=== PATIENT | female | born 1965 | race Caucasian/White ===

== ENCOUNTER → 2021-03-27 13:01 | Outpatient (CLI) | payer OTHER, MEDICAID, SELFPAY ==
--- NOTE | 2021-03-27 | DI.US.S_ITS ---
PROCEDURE: US RENAL COMPLETE INDICATIONS: GROSS HEMATURIA/KIDNEY DISEASE STAGE 3 TECHNIQUE: Real-time scanning was performed of the kidneys and bladder, with image documentation. COMPARISON: None. FINDINGS: Kidneys: Right kidney measures 23.7 cm long; left kidney measures 27.4 cm long. Right renal cortical thickness is 0.6 cm; left renal cortical thickness is 1.8 cm. Multi-cystic change of the bilateral kidneys. The largest right cyst measures 8.7 x 7.3 x 5.2 cm and is located within the upper pole. No solid component is appreciated. The largest left cyst measures 6.8 x 5.7 x 4.8 cm and is located within the upper pole. Dependent echogenic material is seen within the aforementioned cyst, measuring 4.5 x 4 cm, which does not exhibit vascularity and may reflect blood products or reflect a soft tissue component. No gross hydronephrosis or nephrolithiasis. Bladder: Pre-void bladder volume is 430 mL. Post-void residual is 15 mL. Pre-void images demonstrate no intraluminal masses or stones. On pre-void images, the left ureteral jet is seen with color Doppler interrogation. (Of note, ureteral jets may not be detectable in up to 25% of cases due to insufficient differences in specific gravity between ureteral and bladder urine). Miscellaneous: No free pelvic fluid. Lobulated contour of the uterus with a hypoechoic, ovoid mass, measuring up to 7.8 cm, which may reflect a fibroid. Hypoechoic lesions are seen in the liver measuring up to 10.5 cm, likely representing cysts. IMPRESSION: 1. Multi cystic change of the kidneys and liver. 2. Blood products versus solid component within the left upper pole cyst. Magnetic resonance imaging with renal protocol may be helpful for further characterization. Dictated by: Chivo Le M.D. on 03/27/2021 at 15:25 Approved by: Chivo Le M.D. on 03/27/2021 at 15:31
== END ==
PROVIDERS: PCP Nurse Practitioner Family; Referring Provider Family Medicine; Visit Provider Family Medicine
DX: N18.32 Chronic kidney disease, stage 3b (principal); R31.0 Gross hematuria; Q61.3 Polycystic kidney, unspecified
CPT/HCPCS: 76770

== ENCOUNTER → 2021-08-04 12:42 | Outpatient (CLI) | payer OTHER, MEDICAID, SELFPAY ==
--- NOTE | 2021-08-04 | DI.MRI.S_ITS ---
PROCEDURE: MR ABDOMEN WO CON INDICATIONS: Polycystic kidney/Hematuria/kidney mass TECHNIQUE: Multiplanar multisequence noncontrast exam of the abdomen. Coronal and axial HASTE, axial 2-D FLASH in- and [id number]. Coronal VIBE and T2 space images also obtained. COMPARISON: [facility], , US RENAL COMPLETE, 03/27/2021, 13:31. FINDINGS: Image quality: Adequate. Kidneys: Polycystic morphology of the kidneys. Due to large size, the right kidney is not entirely included within the [id number] of the exam. Renal volumes were not calculated due to incomplete visualization of the right kidney and absence of images in the sagittal plane. A nodular structure is present along the anterior/anti dependent aspect of a cyst at the upper left kidney. This measures 1.6 x 1.7 x 3.2 cm (axial T2 haste series 6, image 27 and coronal T2 haste series 3, image 20). This finding demonstrates intrinsic T1 hyperintensity on T1 weighted images. No intravenous contrast was administered to assess for presence or absence of enhancement. This may correlate with the finding described in the report of the recent renal ultrasound however comparison is difficult due to differences in modality. Within the same cyst, along the dependent portion, there is layering material demonstrating intrinsic T1 hyperintensity compatible with blood products or clot or proteinaceous material. Similar findings are present in multiple additional cysts in both kidneys. No definite hydronephrosis. Adrenal glands: Not well visualized. Other solid organs: Polycystic morphology of the liver. Gallbladder is difficult to identify given the presence of innumerable hepatic and renal cysts. Biliary system is non dilated. Pancreas is unremarkable in morphology. Spleen is normal in size. Nodes and vessels: No definite retroperitoneal or mesenteric adenopathy by size criteria. Aorta and inferior vena cava are normal in size. Bowel and peritoneum: Unenhanced bowel loops are normal in caliber. Colonic diverticulosis is present. No substantial free fluid. Lung bases: No basal pleural effusions. Bones and soft tissues: Bone marrow is of normal overall signal. Leftward curvature of the lumbar spine centered at the mid lumbar spine. IMPRESSION: 1. Polycystic morphology of the kidneys and liver. 2. A 3.2 cm indeterminate nodular structure is present within a cortical cyst at the left upper kidney. This may correspond to the finding described on the report for the recent renal ultrasound. The non-contrast signal characteristics raise the possibility of blood products/clot however an enhancing solid mass cannot be excluded in the absence of intravenous contrast. Consider imaging follow-up to ensure stability or resolution, with an initial interval of 3-6 months or at clinical discretion. Dictated by: Gabe Goode M.D. on 08/04/2021 at 17:53 Approved by: Gabe Goode M.D. on 08/04/2021 at 18:17
== END ==
PROVIDERS: PCP Nurse Practitioner Family; Referring Provider Nurse Practitioner Family; Visit Provider Nurse Practitioner Family
DX: Q61.3 Polycystic kidney, unspecified (principal); R31.9 Hematuria, unspecified; N28.89 Other specified disorders of kidney and ureter
CPT/HCPCS: 74181

== ENCOUNTER 2023-04-27 17:53 | Emergency (ER) | payer OTHER, MEDICAID, SELFPAY ==
[2023-04-27 18:12] VITALS: BP 181/97; PULSE 89; RESP 18; TEMP 36.8; O2SAT 98; BMI 23.3
--- NOTE | 2023-04-27 18:21 | DI.RAD.S_ITS ---
PROCEDURE: XR CHEST 1V INDICATIONS: chest pain TECHNIQUE: One view of the chest was acquired. COMPARISON: None. FINDINGS: Surgical changes and devices: None. Lungs and pleura: Lungs are clear. No pleural effusions or pneumothorax. Mediastinum: Mediastinal contours appear normal. Heart size is normal. Bones and chest wall: No suspicious bony lesions. Overlying soft tissues appear unremarkable. IMPRESSION: No acute cardiopulmonary abnormalities or focal airspace disease. Dictated by: Prabhu Hoffmann M.D. on 04/27/2023 at 18:17 Approved by: Prabhu Hoffmann M.D. on 04/27/2023 at 18:18
[2023-04-27 18:57] LABS: Add Manual Diff / Slide Review NO; Basophils Absolute Auto 100 /uL (0-100); Basophils Percent Auto 0.6 % (0-2); Eosinophils Absolute Auto 100 /uL (0-450); Hematocrit 39.8 % (36-46); Hemoglobin 13.3 g/dL (12.0-16.0); Lymphocytes Absolute Auto 1200 /uL (1100-4500); Mean Corpuscular HGB Conc 33.6 % (30-36); Mean Corpuscular Volume 89.3 fL (80-100); Monocytes Absolute Auto 400 /uL (0-900); Monocytes Percent Auto 4.5 % (3-14); Neutrophils Absolute Auto 7500 /uL (1500-7000); Neutrophils Percent Auto 80.9 % (50-75); Platelet Count 210 X10^3/uL (150-400); Red Blood Cell Count 4.45 X10^6/uL (4.0-5.2); Red Cell Distribution Width 13.6 % (11.6-14.8); White Blood Cell Count 9.3 X10^3/uL (4.5-11.0)
[2023-04-27 19:04] LABS: Prothrombin Time 11.8 SECONDS (9.4-12.5)
[2023-04-27 19:07] LABS: PTT Partial Thromboplastin Tim 45 SECONDS (25.1-36.5)
[2023-04-27 19:09] LABS: Alanine Aminotransferase 18 IU/L (<35); Albumin 4.4 g/dL (3.5-5.0); Albumin Globulin Ratio 1.3 (1.0-2.8); Alkaline Phosphatase 78 U/L (38-126); Aspartate Aminotransferase 21 IU/L (14-36); BUN Creatinine Ratio 8.4 (6-22); Bilirubin Total 0.6 mg/dL (0.2-1.3); Blood Urea Nitrogen 16 mg/dL (7-17); Calcium 9.3 mg/dL (8.4-10.2); Carbon Dioxide 27 mmol/L (22-32); Chloride 104 mmol/L (98-107); Creatine Kinase 52 U/L (30-135); Estimated Glomerular Filt Rate 30 mL/min (>60); Globulin 3.5 g/dL (1.7-4.1); Glucose 106 mg/dL (70-100); HEMOLYSIS < 15 (0-50); Lipase 201 U/L (23-300); Potassium 3.6 mmol/L (3.4-5.1); Sodium 138 mmol/L (137-145); Total Protein 7.9 g/dL (6.3-8.2)
[2023-04-27 19:20] LABS: Troponin I < 0.012 ng/mL (0.01-0.034)
--- NOTE | 2023-04-27 20:10 | PC.NURSE ---
pt states she is currently being seen by a urologist down at [facility]. He has ordered a test for histoplamosis and a MRI. she has not been able to schedule this so far. she has kidney failure that is worsening. the last few weeks she has felt weak going up stairs, walking, she feels tremors under her skin. states she has lost 20lb in 2 weeks. increased number of falls, headaches, decreased appetite, digestive changes, joint pain. she states she has a lump on her arm that is painful to the touch from where she got her covid shot 3 weeks ago. 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 she only feels better when she has all the windows down. she understands she will not get all the answers tonight but is hoping we can start her journey to discover what is going on. pt also informed that she will probably not be able to make [place] last ferry tonight and expect to stay in town. she verbalized understanding of this and is okay with plan.
--- NOTE | 2023-04-27 21:31 | ED.WEAKNESS ---
HPI - Weakness General Chief complaint: Weakness Stated complaint: kidney failure/shaking/headaches/ T-0 Time Seen by Provider: 04/27/23 21:31 Source: patient Mode of arrival: Ambulatory History of Present Illness HPI Narrative: Patient 57-year-old female history of polycystic kidney disease followed by nephrology in lives over at [place] presents today with variety of symptoms. He reports that he has had 20 lb weight loss over the last 2 weeks despite eating and drinking normally. She feels shaky and weak. Denies any fever chills. This morning she felt like she was trembling more than normal. She was seen by her pick up and delivery driver this week who ordered an MRI and a histoplasmosis test. She is having difficulty trying to coordinate get these tests done despite talking to the pick up and delivery driver's office in scheduling. Apparently the order was sent to a different facility is causing her great anxiety. She has no chest pain or shortness of breath. Related Data Allergies Allergy/AdvReac Type Severity Reaction Status Date / Time Opioids - Morphine Analogues AdvReac psychotically Verified 04/27/23 18:11 angry tomato AdvReac mouth Verified 04/27/23 18:11 blisters Patient History Social History Smoking Status: Never smoker Smoking Status: Never smoker Substance Use Type: does not use Exam Initial Vital Signs Initial Vital Signs: Vital Signs Temperature 98.3 F 04/27/23 18:12 Pulse Rate 89 04/27/23 18:12 Respiratory Rate 18 04/27/23 18:12 Blood Pressure 181/97 H 04/27/23 18:12 Pulse Oximetry 98 04/27/23 18:12 Oxygen Delivery Method Room Air 04/27/23 18:12 GENERAL: Alert anxious 49-year-old female and in no acute distress. HEENT: Head atraumatic,EOMI, pupils reactive, face symmetric, moist mucous membranes CARDIOVASCULAR: Regular rate and rhythm without murmurs, rubs or gallops. RESPIRATORY: Breath sounds equal bilaterally, no wheezes rales or rhonchi. ABDOMEN: Soft mild right upper quadrant pain no guarding no rebound EXTREMITIES: Normal range of motion, no clubbing or edema. Neurovascularly intact NEUROLOGICAL: Alert and oriented x4.Normal gait and speech. SKIN: Warm, dry, no laceration, no petechiae, no rashes or lesions. Course Orders Ordered: ED Orders 04/27/23 18:21 XR chest 1V Stat EKG-12 Lead Stat 04/27/23 18:35 Complete Blood Count AUTO DIFF Stat Comprehensive Metabolic Panel Stat Lipase Stat Magnesium Stat PTT Partial Thromboplastin Samuel Stat Prothrombin Time INR Stat Troponin & CK Cardiac Panel Stat 04/27/23 22:05 CT abdomen pelvis wo con Stat Vital Signs Vital signs: Vital Signs - 8 hr 04/27/23 22:42 04/27/23 22:42 04/27/23 23:00 Temperature 98.0 F Pulse Rate 64 69 Respiratory Rate 20 Blood Pressure 181/98 H Pulse Oximetry 98 96 Oxygen Delivery Method Room Air 04/27/23 23:20 04/27/23 23:20 04/27/23 23:30 Temperature Pulse Rate 65 60 Respiratory Rate Blood Pressure 175/98 H Pulse Oximetry 97 96 Oxygen Delivery Method 04/28/23 00:00 Temperature Pulse Rate 63 Respiratory Rate 16 Blood Pressure Pulse Oximetry 97 Oxygen Delivery Method Room Air MDM - Weakness Lab Data 04/27/23 18:35 04/27/23 18:35 Labs: Lab Results 04/27/23 Range/Units 18:35 WBC 9.3 (4.5-11.0) X10^3/uL RBC 4.45 (4.0-5.2) X10^6/uL Hgb 13.3 (12.0-16.0) g/dL Hct 39.8 (36-46) % MCV 89.3 (80-100) fL MCH 30.0 (26-34) PG MCHC 33.6 (30-36) % RDW 13.6 (11.6-14.8) % Plt Count 210 (150-400) X10^3/uL Neut % (Auto) 80.9 H (50-75) % Lymph % (Auto) 13.0 L (25-40) % [place] % (Auto) 4.5 (3-14) % Eos % (Auto) 1.0 L (2-4) % Baso % (Auto) 0.6 (0-2) % Neut # (Auto) 7500 H (0935-5183) /uL Lymph # (Auto) 1200 (8955-8388) /uL [place] # (Auto) 400 (0-900) /uL Eos # (Auto) 100 (0-450) /uL Baso # (Auto) 100 (0-100) /uL PT 11.8 (9.4-12.5) SECONDS INR 1.0 (0.9-1.3) APTT 45 H (25.1-36.5) SECONDS Sodium 138 (137-145) mmol/L Potassium 3.6 (3.4-5.1) mmol/L Chloride 104 (98-107) mmol/L Carbon Dioxide 27 (22-32) mmol/L BUN 16 (7-17) mg/dL Creatinine 1.91 H (0.52-1.04) mg/dL Estimated GFR 30 L (>60) mL/min BUN/Creatinine Ratio 8.4 (6-22) Glucose 106 H (70-100) mg/dL Calcium 9.3 (8.4-10.2) mg/dL Magnesium 2.0 (1.6-2.3) mg/dL Total Bilirubin 0.6 (0.2-1.3) mg/dL AST 21 (14-36) IU/L ALT 18 (<35) IU/L Alkaline Phosphatase 78 (38-126) U/L Total Creatine Kinase 52 (30-135) U/L Troponin I < 0.012 (0.01-0.034) ng/mL Total Protein 7.9 (6.3-8.2) g/dL Albumin 4.4 (3.5-5.0) g/dL Globulin 3.5 (1.7-4.1) g/dL Albumin/Globulin Ratio 1.3 (1.0-2.8) Lipase 201 (23-300) U/L Urine Dip Bedside Urine Glucose Negative Bedside Urine Bilirubin - Negative Bedside Urine Ketone - Negative Urine Specific [place] 1.005 Bedside Urine Occult Blood - Negative Bedside Urine pH 6.0 Bedside Urine Protein - Negative Bedside Urine Urobilinogen - Negative Bedside Urine Nitrite - Negative Bedside Urine Leukocytes - Negative Esterase Imaging Data Chest x-ray: Radiologist Impression: PROCEDURE: XR CHEST 1V INDICATIONS: chest pain TECHNIQUE: One view of the chest was acquired. COMPARISON: None. FINDINGS: Surgical changes and devices: None. Lungs and pleura: Lungs are clear. No pleural effusions or pneumothorax. Mediastinum: Mediastinal contours appear normal. Heart size is normal. Bones and chest wall: No suspicious bony lesions. Overlying soft tissues appear unremarkable. IMPRESSION: No acute cardiopulmonary abnormalities or focal airspace disease. Dictated by: Prabhu Hoffmann M.D. on 04/27/2023 at 18:17 CT scan - abdomen/pelvis: Radiologist Impression: PROCEDURE: CT ABDOMEN PELVIS WO CON INDICATIONS: Weight loss polycystic kidney disease TECHNIQUE: Axial sections were acquired from the lung bases to the pubic symphysis. Coronal and sagittal reformats were performed. For radiation dose reduction, the following was used: automated exposure control, adjustment of mA and/or kV according to patient size. COMPARISON: [facility], MR, MR ABDOMEN WO CON, 08/04/2021, 13:02. FINDINGS: Image quality: Diagnostic. Lower Chest: Right lower lobe subpleural 3 mm nodule, which does not require dedicated imaging follow-up based on its size. URINARY: Kidneys and ureters: Enlarged polycystic appearance of both kidneys. Coarse calcifications are seen associated with the right superior pole renal cyst. A few of the cysts demonstrate intermediate or hyperdensity. No hydronephrosis or hydroureter. Bladder: Normal wall thickness. No stones. ABDOMEN: Liver: Liver is enlarged by numerous cysts. Gallbladder: Gallbladder is contracted without radiopaque gallstones. Biliary ducts: No biliary dilation. Pancreas: No ductal dilation. Spleen: Coarse calcifications are seen in the spleen, most likely related to remote prior granulomatous disease. Adrenal Glands: No adrenal nodules. Stomach and Bowel: Multiple diverticular seen in the colon without signs of acute diverticulitis. Small bowel loops and stomach are unremarkable. Normal appendix. Small to moderate hiatal hernia. Peritoneum: No abnormal intraperitoneal fluid. No free air. Ventral Wall: Small fat containing periumbilical hernia. Abdominal Nodes: No enlarged retroperitoneal or mesenteric lymph nodes. Vessels: Aorta and inferior vena cava are normal in size. PELVIS: Pelvic Organs: Unremarkable. Pelvic Nodes: Unremarkable. Miscellaneous: No inguinal hernias are seen. Bones: Multilevel degenerative changes are seen in the spine with levoconvex curvature of the lower lumbar spine. IMPRESSION: 1. Polycystic kidneys and liver. 2. No acute abnormality identified in the abdomen or pelvis. 3. Colonic diverticulosis without signs of acute diverticulitis. Approved by: Gabe Oreilly M.D. on 04/27/2023 at 23:52 ECG Data Attestation: I personally reviewed and interpreted this ECG as follows: Interpretation: Sinus rhythm rate 72 IA interval 150 QRS [address] changes no priors to compare MDM Narrative Medical decision making narrative: Patient 57-year-old female history of polycystic kidney disease presents today with variety of symptoms including 20 lb weight loss and some trembling today. She is currently afebrile appears she feels like there is something going on with her she is having some difficulty navigating the medical system as well supposed to have an MRI and histoplasmosis test but difficult time getting it scheduled into the right place. On exam she is mildly tender in her right upper quadrant she overall appears well and nontoxic she is afebrile and vitals are stable. Blood work has been reviewed and compared to her MyChart stable her creatinine in March was 1.73 today is 1.9, urinalysis does not show UTI CT without contrast does show multiple polycystic kidneys and polycystic liver. Patient reports she is aware of her polycystic liver. Chest x-ray no acute cardiopulmonary process At this time no cause for patient's weight loss she overall appears well nontoxic no evidence infection. Chest x-ray is also negative she has good outpatient follow-up. Discharge Plan Departure Patient Disposition: Home Clinical Impression: Kidney polycystic disease, Liver, polycystic Instructions: Polycystic Kidney Disease Activity Restrictions/Additional Instructions: *You have been diagnosed with polycystic kidney disease *What to do: You were found to have multiple cysts on liver and kidney. No obvious masses. Blood work remained stable please follow-up with your primary care provider you may need further testing. May have primary care reach out to kidney doctor if having difficulty scheduling things. *Continue to take medications as directed *Follow up with your primary care provider in 2-3 days or call [phone] *Return to ER if you should have any new, worsening or concerning symptoms Referrals: Anu Mallory ARNP [Primary Care Provider] - Stand Alone Forms: Patient Portal/API
--- NOTE | 2023-04-27 22:05 | DI.CT.S_ITS ---
PROCEDURE: CT ABDOMEN PELVIS WO CON INDICATIONS: Weight loss polycystic kidney disease TECHNIQUE: Axial sections were acquired from the lung bases to the pubic symphysis. Coronal and sagittal reformats were performed. For radiation dose reduction, the following was used: automated exposure control, adjustment of mA and/or kV according to patient size. COMPARISON: [facility], , MR ABDOMEN WO CON, 08/04/2021, 13:02. FINDINGS: Image quality: Diagnostic. Lower Chest: Right lower lobe subpleural 3 mm nodule, which does not require dedicated imaging follow-up based on its size. URINARY: Kidneys and ureters: Enlarged polycystic appearance of both kidneys. Coarse calcifications are seen associated with the right superior pole renal cyst. A few of the cysts demonstrate intermediate or hyperdensity. No hydronephrosis or hydroureter. Bladder: Normal wall thickness. No stones. ABDOMEN: Liver: Liver is enlarged by numerous cysts. Gallbladder: Gallbladder is contracted without radiopaque gallstones. Biliary ducts: No biliary dilation. Pancreas: No ductal dilation. Spleen: Coarse calcifications are seen in the spleen, most likely related to remote prior granulomatous disease. Adrenal Glands: No adrenal nodules. Stomach and Bowel: Multiple diverticular seen in the colon without signs of acute diverticulitis. Small bowel loops and stomach are unremarkable. Normal appendix. Small to moderate hiatal hernia. Peritoneum: No abnormal intraperitoneal fluid. No free air. Ventral Wall: Small fat containing periumbilical hernia. Abdominal Nodes: No enlarged retroperitoneal or mesenteric lymph nodes. Vessels: Aorta and inferior vena cava are normal in size. PELVIS: Pelvic Organs: Unremarkable. Pelvic Nodes: Unremarkable. Miscellaneous: No inguinal hernias are seen. Bones: Multilevel degenerative changes are seen in the spine with levoconvex curvature of the lower lumbar spine. IMPRESSION: 1. Polycystic kidneys and liver. 2. No acute abnormality identified in the abdomen or pelvis. 3. Colonic diverticulosis without signs of acute diverticulitis. Approved by: Gabe Oreilly M.D. on 04/27/2023 at 23:52
[2023-04-27 22:42] VITALS: BP 181/98; PULSE 64; RESP 20; TEMP 36.7; O2SAT 98
[2023-04-27 23:00] VITALS: PULSE 69; O2SAT 96
[2023-04-27 23:20] VITALS: BP 175/98; PULSE 65; O2SAT 97
[2023-04-27 23:30] VITALS: PULSE 60; O2SAT 96
[2023-04-28] VITALS: PULSE 63; RESP 16; O2SAT 97
--- NOTE | 2023-04-28 00:21 | PC.NURSE ---
Reassessment: Patient reports intermittent vibrating under all of her skin.
== END 2023-04-28 00:38 | disposition home or self-care (01) ==
PROVIDERS: Emergency Provider Emergency Medicine; PCP Nurse Practitioner Family
DX: Q61.3 Polycystic kidney, unspecified (principal); Q44.6 Cystic disease of liver; R07.9 Chest pain, unspecified
CPT/HCPCS: 36415; 71045; 74176; 80053; 81003; 82550; 83690; 83735; 84484; 85025; 85610; 85730; 93005; 93010; 99283; 99284

== ENCOUNTER → 2023-04-29 14:00 | Outpatient (CLI) | payer OTHER, MEDICAID, SELFPAY ==
[2023-04-29 14:33] LABS: Add Manual Diff / Slide Review NO; Basophils Absolute Auto 0 /uL (0-100); Basophils Percent Auto 0.4 % (0-2); Eosinophils Absolute Auto 100 /uL (0-450); Hematocrit 38.5 % (36-46); Hemoglobin 12.9 g/dL (12.0-16.0); Lymphocytes Absolute Auto 800 /uL (1100-4500); Lymphocytes Percent Auto 11.8 % (25-40); Mean Corpuscular HGB Conc 33.5 % (30-36); Mean Corpuscular Volume 89.4 fL (80-100); Monocytes Absolute Auto 300 /uL (0-900); Monocytes Percent Auto 4.1 % (3-14); Neutrophils Absolute Auto 5600 /uL (1500-7000); Neutrophils Percent Auto 82.7 % (50-75); Platelet Count 186 X10^3/uL (150-400); Red Blood Cell Count 4.31 X10^6/uL (4.0-5.2); Red Cell Distribution Width 13.8 % (11.6-14.8); White Blood Cell Count 6.8 X10^3/uL (4.5-11.0)
[2023-04-29 14:50] LABS: Erythrocyte Sedimentation Rate 9 MM/HR (0-20)
[2023-04-29 15:07] LABS: High Sensitivity CRP - Cardiac 1.6 mg/L (1.0-3.0)
[2023-04-29 16:05] LABS: Free T4, Direct Thyroxine 1.45 ng/dL (0.78-2.19)
[2023-04-29 16:19] LABS: Thyroid Stimulating Hormone 1.07 uIU/mL (0.47-4.68)
[2023-04-30 01:20] LABS: Alanine Aminotransferase 16 IU/L (<35); Albumin 3.9 g/dL (3.5-5.0); Albumin Globulin Ratio 1.2 (1.0-2.8); Alkaline Phosphatase 72 U/L (38-126); Aspartate Aminotransferase 27 IU/L (14-36); BUN Creatinine Ratio 9.1 (6-22); Bilirubin Total 0.6 mg/dL (0.2-1.3); Blood Urea Nitrogen 17 mg/dL (7-17); Calcium 9.1 mg/dL (8.4-10.2); Carbon Dioxide 22 mmol/L (22-32); Chloride 111 mmol/L (98-107); Estimated Glomerular Filt Rate 31 mL/min (>60); Globulin 3.2 g/dL (1.7-4.1); Glucose 153 mg/dL (70-100); HEMOLYSIS < 15 (0-50); Sodium 139 mmol/L (137-145); Total Protein 7.1 g/dL (6.3-8.2)
== END ==
PROVIDERS: PCP Nurse Practitioner Family; Referring Provider Family Medicine; Visit Provider Family Medicine
DX: Q61.2 Polycystic kidney, adult type (principal); R61 Generalized hyperhidrosis; R63.4 Abnormal weight loss; N18.32 Chronic kidney disease, stage 3b
CPT/HCPCS: 36415; 80053; 84439; 84443; 85025; 85651; 86140; 87385

== ENCOUNTER → 2024-05-02 09:05 | Outpatient (CLI) | payer OTHER, SELFPAY ==
--- NOTE | 2024-05-02 09:06 | DI.US.S_ITS ---
PROCEDURE: US HERNIA INDICATIONS: PERIUMBILLICAL MASS TECHNIQUE: Real-time focused scanning was performed of the abdominal wall, with image documentation. COMPARISON: [facility], CT, CT ABDOMEN PELVIS WO CON, 04/27/2023, 22:07. FINDINGS: Small periumbilical hernia. Multifocal with hernia neck is measuring 1.3 cm and 1.1 cm. There is trace fluid within the hernia sac. The hernia is partially reducible. IMPRESSION: Fat containing periumbilical hernia. Trace fluid in the hernia sac. Dictated by: Aftab Gabriel M.D. on 05/02/2024 at 14:41 Approved by: Aftab Gabriel M.D. on 05/02/2024 at 14:46
== END ==
PROVIDERS: PCP Family Medicine; Referring Provider Family Medicine; Visit Provider Family Medicine
DX: K42.9 Umbilical hernia without obstruction or gangrene (principal); R19.05 Periumbilic swelling, mass or lump
CPT/HCPCS: 76705